=== PATIENT | female | born 1970 | race Caucasian/White ===

== ENCOUNTER 2017-12-09 02:57 | Emergency (ER) | payer SELFPAY ==
[2017-12-09 02:59] VITALS: BP 182/99; PULSE 101; RESP 16; TEMP 36.8; O2SAT 99; BMI 28.5
[2017-12-09 03:07] VITALS: BP 173/93; PULSE 86; RESP 16; O2SAT 97
--- NOTE | 2017-12-09 03:09 | ED.DCSUM_ITS ---
- ER Visit Summary Date of Service: 12/09/17 Chief Complaint: [] Dental pain History of Present Illness: The patient is a 47 F complaining of dental pain toothache for last 4 days gradual onset continuous right upper with some swelling to the cheek. She is using ibuprofen. She has never had a dental abscess. No dentist. Physical Examination: Vital signs reviewed General: Well-nourished well-developed Head: Normocephalic atraumatic Eyes: Pupils equal round and reactive to light extraocular movements intact ENT: Dental exam shows a mild amount of gum swelling right upper consistent with periapical abscess. Nothing to Jose Alejandro. Mild soft tissue swelling to the right upper cheek. TMs clear no hemotympanum no trauma Neck: Nontender full range of motion Cardiovascular: Regular rate rhythm no murmurs normal S1-S2 Respiratory: No distress clear to auscultation bilaterally chest nontender Abdomen: Soft nontender nondistended normal bowel sounds no masses Back: Nontender no CVA tenderness Extremities: Nontender active range of motion ?4 extremities no trauma Skin: Normal color no trauma Neuro alert oriented cranial nerves II through XII intact normal strength sensation reflexes Test Results: [] Emergency Department Course and Treatment: [] Started on amoxicillin will continue this for the next 10 days for dental infection abscess. Started on Starks and will follow-up with dentistry. Just given Starks here and will use ibuprofen at home. Treatment Plan: [] Disposition: [] Impression: [] Upper periapical abscess This note was generated with Mobile Authentication dictation software. It may contain incorrect words, spelling, and punctuation that were not noted in review of the chart prior to signing ED Disposition - Plan for ED Patient: Chief Complaint: Dental
--- NOTE | 2017-12-09 03:09 | ED.DEP ---
ED Disposition - Plan for ED Patient: Disposition: Home or Assisted Living Chief Complaint: Dental Instructions: Dental Abscess Prescriptions: Amoxicillin 875 mg PO BID #20 tab Referrals: Dentist,Your [STAFF PHYSICIAN] -
[2017-12-09] MEDS: HYDROcodone Bitartrate/Apap 5/325 Tablet PO (03:13)
[2017-12-09] MEDS: AMOXICILLIN 500 MG CAPSULE 1000 MG PO (03:13)
== END 2017-12-09 03:23 | disposition home or self-care (01) ==
LOC: ED 03:22
PROVIDERS: Emergency Provider Emergency Medicine
DX: K04.7 Periapical abscess without sinus (principal); Z72.0 Tobacco use
CPT/HCPCS: 99282

== ENCOUNTER → 2020-12-28 15:59 | Outpatient (CLI) | payer MEDICARE, SELFPAY | PROVIDERS: Visit Provider Family Medicine | DX: Z03.818 Encounter for observation for suspected exposure to other biological agents ruled out (principal) | CPT/HCPCS: 87635; U0002 ==

== ENCOUNTER → 2021-02-16 16:27 | Outpatient (CLI) | payer MEDICARE, SELFPAY | PROVIDERS: PCP Family Medicine; Referring Provider Family Medicine; Visit Provider Family Medicine | DX: Z03.818 Encounter for observation for suspected exposure to other biological agents ruled out (principal) | CPT/HCPCS: 87635; U0005; U0003 ==

== ENCOUNTER 2021-02-21 09:56 | Emergency (ER) | payer SELFPAY ==
[2021-02-21 09:57] VITALS: BP 192/103; PULSE 93; RESP 16; TEMP 36.5; O2SAT 100; BMI 30.2
--- NOTE | 2021-02-21 10:30 | ED.VIS.DENTA ---
HPI History of Present Illness Chief Complaint: Dental Informant: patient Narrative Narrative: Patient is a 50-year-old female who presents to the emergency department for right jaw pain and swelling. She states that this initially started yesterday. She believes she has a dental infection. She has poor dentition with a cracked tooth just overlying that site. She denies any fevers or chills. No issues with swallowing. No sore throat. No chest pain or shortness of breath. She denies this ever happening before. She does feel a pressure in her right ear. No drainage appreciated. No headache. She does not follow regularly with a dentist. [facility] Home Medications penicillin V potassium 500 mg PO 4X/DAY #40 tab 02/21/21 [Rx Last Taken Unknown] Allergy/AdvReac Type Severity Reaction Status Date / Time No Known Allergies Allergy Verified 02/21/21 09:59 Social History Smoking Status: Current every day smoker tobacco type: cigarettes ROS ROS ED Constitutional Constitutional ED: Denies chills or fever(s) Eyes Eyes: Denies change in vision ENT ENT ED: Reports ear pain and other Details: Dental pain ; Denies epistaxis, rhinorrhea or sore throat Cardiovascular Cardiovascular: Denies chest pain or palpitations Respiratory/Chest Respiratory/Chest: Denies cough, dyspnea or dyspnea on exertion Gastrointestinal Gastrointestinal: Denies abdominal pain, diarrhea, nausea or vomiting Musculoskeletal Musculoskeletal: Denies back pain or neck pain Integumentary Denies rash Neurologic Neurologic: Denies dizziness, headache(s) or weakness EXAM Physical Exam Const Vital Signs: 02/21/21 09:57 02/21/21 10:33 02/21/21 10:34 Temperature 97.7 F L Temperature Source Temporal Pulse Rate 93 77 Respiratory Rate 16 18 Blood Pressure 192/103 H 174/84 H 174/84 H Blood Pressure Mean 132 114 Pulse Ox 100 97 Oxygen Delivery Method Room Air Positive well nourished and well developed General Appearance ED: well developed and NAD HEENT Reports normocephalic, head/scalp atraumatic and moist mucous membranes HEENT Narrative: Dental caries throughout. There is a cracked tooth. No obvious fluctuating drainable abscess present. There is swelling over the right mandible. No overlying skin changes. Tympanic membrane is clear bilaterally. Uvula midline. Eyes PERRL and EOMs intact bilaterally Neck no lymphadenopathy and supple General: Negative for tenderness Chest Wall inspection of chest normal Resp normal respiratory effort and clear to auscultation bilaterally Auscultation: Negative for rales, rhonchi or wheezes Cardio regular rate, regular rhythm and no murmurs Back/Spine no CVA tenderness Extremity normal to inspection General Extremety ED: Negative for edema or tenderness General Extremity: Negative for edema Neuro oriented x3, CN's II-XII intact bilaterally and no sensory deficits noted Sensorium / Orientation: alert Motor Exam: strength 5/5 throughout Psych mental status grossly normal Skin no rashes or lesions noted MDM MDM MDM Narrative Medical decision making narrative: Patient presents to the ED for dental pain. She does have swelling of her face on the right side. No evidence of Ijeoma's angina. No drainable abscess appreciated. Will treat with penicillin. She is given a dental clinic referral list and needs to follow-up this coming week. She can continue to take ibuprofen and Tylenol for her symptoms. She understands and is agreeable with plan. Discharged home in stable condition. Impression: #1. dental abscess Discharge Plan Triage Chief Complaint: Dental Other Complaint: Edema ED Provider: Juan Diego Salazar Dx/Rx/DC Orders Instructions: ED Dental Abscess Prescriptions: New penicillin V potassium 500 mg tablet 500 mg PO 4X/DAY Qty: 40 RF: 0 Primary Care Provider: Care Physician,No Primary Referrals: Heath Agarwal MD [[facility]] - Disposition Disposition: Home, Self Care Discharge Date/Time: 02/21/21 10:44
[2021-02-21] MEDS: Penicillin Vk 250 MG Tablet 500 MG PO (10:32)
[2021-02-21 10:33] VITALS: BP 174/84; PULSE 77; RESP 18; O2SAT 97
[2021-02-21 10:34] VITALS: BP 174/84
== END 2021-02-21 10:44 | disposition home or self-care (01) ==
LOC: ED 10:39
PROVIDERS: Emergency Provider Emergency Medicine
DX: K04.7 Periapical abscess without sinus (principal); F17.210 Nicotine dependence, cigarettes, uncomplicated
CPT/HCPCS: 99283

== ENCOUNTER 2022-03-08 22:30 | Emergency (ER) | payer OTHER, SELFPAY ==
[2022-03-08 22:32] VITALS: BP 192/119; PULSE 105; RESP 18; TEMP 36.8; O2SAT 100; BMI 29.4
[2022-03-08 22:34] VITALS: BP 192/119; PULSE 105; RESP 18; TEMP 36.8; O2SAT 100
--- NOTE | 2022-03-08 22:55 | EX.ED.DYSGE1 ---
HPI History of Present Illness Chief Complaint: Lower Extremity Injury Informant: patient Narrative Narrative: About 45 minutes ago patient noticed an itching and burning sensation on her medial distal left thigh. She pulled up her pants and noticed an erythematous area with a central redness and warmth. It looks like something bit her. With a central redness and warmth. It looks like something bit her. She has no systemic symptoms. She has no shortness of breath. No other areas of redness. PFSH PFSH Medical History Smoker Allergy/AdvReac Type Severity Reaction Status Date / Time No Known Allergies Allergy Verified 02/21/21 09:59 Surgical History (Updated 03/08/22 @ 23:27 by Cceilia Marin) History of Social History Smoking Status: Current every day smoker tobacco type: cigarettes ROS ROS ED Constitutional Constitutional ED: Denies chills, fever(s) or sweats ENT ENT ED: Denies rhinorrhea or sore throat Cardiovascular Cardiovascular: Denies chest pain Respiratory/Chest Respiratory/Chest: Denies cough or dyspnea Gastrointestinal Gastrointestinal: Denies nausea or vomiting Musculoskeletal Musculoskeletal: Denies arthralgias Integumentary Reports rash; Denies abscess or Abrasions Neurologic Neurologic: Denies paresthesias Allergic/Immunologic Allergic/Immunologic ED: Denies urticaria EXAM Physical Exam Const Vital Signs: 03/08/22 22:32 03/08/22 22:34 03/08/22 23:29 Temperature 98.3 F 98.3 F Temperature Source Temporal Temporal Pulse Rate 105 H 105 H Respiratory Rate 18 18 Blood Pressure 192/119 H 192/119 H 180/85 H Blood Pressure Mean 143 143 116 Pulse Ox 100 100 Oxygen Delivery Method Room Air Room Air 03/08/22 23:34 Temperature Temperature Source Pulse Rate 89 Respiratory Rate 16 Blood Pressure 180/85 H Blood Pressure Mean Pulse Ox 96 Oxygen Delivery Method Positive well nourished and well developed General Appearance ED: well developed and NAD HEENT Reports moist mucous membranes HEENT Narrative: No change in voice speech or handling of secretions. Eyes EOMs intact bilaterally Neck Neck Narrative: No stridor. Resp normal respiratory effort and clear to auscultation bilaterally Extremity Extremity Narrative: Patient has an erythematous area on her left medial distal thigh. Total circumference is approximately 8 cm. In the center of this area is about 1-1/2 to 2 cm round area of denser erythema. It almost looks like there may be a bite ronaldo in the center. However, even under magnification I cannot see a stinger or anything in this. It is indurated but not abscessed. She states this just started over the last 45 minutes or so. There is no pain with motion of the knee. This is clearly a skin lesion and not involving the joint. Neuro Sensorium / Orientation: alert Psych mental status grossly normal Skin Skin Narrative: See above. MDM MDM MDM Narrative Medical decision making narrative: This appears to be most likely a bite or sting ronaldo. It has a central area that slightly white surrounded by dense or erythema surrounded by less erythema. No known tick exposures. No systemic symptoms. I do not think this requires antibiotics. There is no indication of actual joint involvement. We will treat this as an allergic response. She would like to go back to work. I explained that this will not immediately resolve. If she develops fevers or other issue she should return. Discharge Plan Triage Chief Complaint: Lower Extremity Injury ED Provider: Lion Wilkinson Dx/Rx/DC Orders Clinical Impression: Insect bite of left thigh with local reaction Instructions: ED Insect Sting, Local Reaction Primary Care Provider: Care Physician,No Primary Referrals: Chiqui Christian MD [STAFF PHYSICIAN] - 3-5 Days Care Physician,No Primary [Primary Care Provider] - Activity Restrictions/Additional Instructions: You should check your blood pressure twice a day over the next week. May need follow-up for treatment. Take Claritin and Pepcid [id number] daily for the next 3-5 days. Disposition Disposition: Home, Self Care Discharge Date/Time: 03/08/22 23:35
[2022-03-08] MEDS: dexAMETHasone 4 MG Tablet 10 MG PO (23:21)
[2022-03-08] MEDS: Famotidine 20 MG Tablet 40 MG PO (23:21)
[2022-03-08] MEDS: Loratadine 10 MG Tablet PO (23:21)
[2022-03-08 23:29] VITALS: BP 180/85
[2022-03-08 23:34] VITALS: BP 180/85; PULSE 89; RESP 16; O2SAT 96
== END 2022-03-08 23:35 | disposition home or self-care (01) ==
LOC: ED 23:22
PROVIDERS: Emergency Provider Emergency Medicine; Visit Provider Emergency Medicine
DX: T63.481A Toxic effect of venom of other arthropod, accidental (unintentional), initial encounter (principal); F17.210 Nicotine dependence, cigarettes, uncomplicated
CPT/HCPCS: 99283

== ENCOUNTER 2022-09-01 16:26 | Emergency (ER) | payer OTHER, SELFPAY ==
[2022-09-01 16:27] VITALS: BP 195/90; PULSE 106; RESP 14; TEMP 35.7; O2SAT 98; BMI 29.7
[2022-09-01 16:34] VITALS: BP 190/98; PULSE 107
--- NOTE | 2022-09-01 16:38 | ED.VIS.DENTA ---
HPI History of Present Illness Chief Complaint: Dental Informant: patient Onset/Context/Timing Onset: Today Context: - (awoke w/ pain/swelling) Timing: Continuous Quality: sore/aching Location: right upper dentition/facce Current Severity: Moderate Maximum Severity: Moderate Worsened by: eating Relieved by: - (nothing but hasn't taken anything) Associated Symptoms Assocated Symptom - Dental: face swelling; Negative for fever Narrative Narrative: Patient states she has a history of poor dentition, she woke up with pain and swelling in her right face and dentition this morning. No fevers or chills. No bleeding or foul taste/discharge in her mouth. PFSH PFSH Medical History Smoker Home Medications amoxicillin 500 mg tablet 500 mg PO TID #30 tabs 09/01/22 [Rx Last Taken Unknown] ibuprofen 600 mg tablet 600 mg PO Q8H PRN PRN pain #20 TABLETS 09/01/22 [Rx Last Taken Unknown] Allergy/AdvReac Type Severity Reaction Status Date / Time No Known Allergies Allergy Verified 09/01/22 16:33 Surgical History History of Social History Smoking Status: Current every day smoker tobacco type: cigarettes ROS ROS ED Constitutional Constitutional ED: Denies chills or fever(s) Eyes Eyes: Denies change in vision or double vision ENT ENT ED: Reports dental pain; Denies sinus pain or throat swelling Cardiovascular Cardiovascular: Denies chest pain or palpitations Respiratory/Chest Respiratory/Chest: Denies cough or dyspnea Integumentary Denies abscess or rash Neurologic Neurologic: Denies headache(s), paresthesias or weakness EXAM Physical Exam Const Vital Signs: 09/01/22 16:27 09/01/22 16:34 Temperature 96.3 F L Temperature Source Temporal Pulse Rate 106 H 107 H Respiratory Rate 14 Blood Pressure 195/90 H 190/98 H Blood Pressure Mean 125 128 Pulse Ox 98 Oxygen Delivery Method Room Air Positive well nourished and well developed General Appearance ED: well developed and NAD HEENT HEENT Narrative: Extremely poor dentition. The teeth that are left in the right maxillary row are extremely decayed. The canine and bicuspid are tender, they are not loosened, there is no discharge, there is no palpable abscess, there is no bleeding or gingival abnormality. The right maxilla face is swollen and tender especially near the nose but there is no fluctuance or erythema. The lower eyelid is a little involved but nontender. No trismus. No sublingual edema. No tongue elevation. No stridor. Normal voice. Face and Sinus: sinuses nontender Throat: posterior oropharynx normal Eyes PERRL and EOMs intact bilaterally Neck no lymphadenopathy and supple Resp normal respiratory effort Neuro oriented x3 and CN's II-XII intact bilaterally Sensorium / Orientation: alert Gait (Neuro): normal gait Psych mental status grossly normal and thought process normal Skin no rashes or lesions noted and no wounds MDM MDM MDM Narrative Medical decision making narrative: Early involvement of dental abscess without any fluctuance to suggest that needle aspiration would be fruitful. There is no fullness inside the mouth where she is tender to suggest a pointing abscess. Her blood pressure is elevated, that will need to be rechecked when she is not in so much pain, she is in agreement, she is not on any blood pressure medication. She wants to work tonight, so she is comfortable with using ibuprofen and no narcotics, will start her on amoxicillin now. Dental follow-up advised. Discharge Plan Triage Chief Complaint: Dental ED Provider: Yo Bruce Dx/Rx/DC Orders Clinical Impression: Infected dental caries, Episode of hypertension Instructions: ED Dental Abscess Prescriptions: New amoxicillin 500 mg tablet 500 mg PO TID Qty: 30 0RF ibuprofen 600 mg tablet 600 mg PO Q8H PRN PRN (Reason: pain) Qty: 20 0RF Primary Care Provider: Care Physician,No Primary Referrals: Dentist,Your [STAFF PHYSICIAN] - As soon as possible Doctor,Your [Non-Staff] - 3-5 Days (for blood pressure recheck) Disposition Disposition: Home, Self Care
[2022-09-01] MEDS: Ibuprofen 600 MG Tablet PO (16:51)
[2022-09-01] MEDS: AMOXICILLIN 500 MG CAPSULE PO (16:51)
== END 2022-09-01 16:53 | disposition home or self-care (01) ==
PROVIDERS: Emergency Provider Emergency Medicine; Visit Provider Emergency Medicine
DX: K02.9 Dental caries, unspecified (principal); I10 Essential (primary) hypertension; F17.210 Nicotine dependence, cigarettes, uncomplicated
CPT/HCPCS: 99283

== ENCOUNTER 2024-04-22 23:09 | Emergency (ER) | payer OTHER, SELFPAY ==
[2024-04-22 23:09] VITALS: BP 187/97; PULSE 90; RESP 16; TEMP 36.6; O2SAT 99; BMI 33.3
--- NOTE | 2024-04-23 00:09 | RAD_ITS ---
EXAM: XR LUMBOSACRAL SPINE, 4 OR 5 VIEWS CLINICAL INDICATION: pain TECHNIQUE: Frontal, lateral and bilateral oblique views of the lumbar spine. COMPARISON: No relevant prior studies available. FINDINGS: VERTEBRAE: Facet joint hypertrophy. Preserved vertebral body height. No fracture. No spondylolisthesis. Preservation of the normal lumbar lordosis. DISC SPACES: Degenerative changes of the intervertebral discs. VASCULATURE: Atherosclerotic calcifications of the abdominal aorta. GASTROINTESTINAL TRACT: Unremarkable as visualized. Included bowel gas pattern is non-obstructive. RAD/L/S Spine Min 4 Views IMPRESSION: 1. No acute injuries identified involving the lumbar spine. 2. Degenerative changes. Electronically Signed: Modesto Sommer MD at 0:44 EDT ,
[2024-04-23] MEDS: Orphenadrine 60 MG/2 ML Ampul IM (00:16)
[2024-04-23] MEDS: Ketorolac 30 MG/ML Syringe IM (00:16)
--- NOTE | 2024-04-23 00:45 | EDS_ITS ---
HPI History of Present Illness Chief Complaint: Back Informant: patient Narrative Narrative: Patient is a 54-year-old female with no significant past medical history. 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 She states that after doing so she developed pain in her bilateral low back that was worse with motion. She states that she took it easy for the next few days and took Tylenol and Motrin which seemed to help. However when she came back to work and began moving and lifting the pain returned and this concerned her so therefore she presents for evaluation. She denies any loss of bowel or bladder control or IV drug use. PFSH PFSH Medical History Smoker Home Medications ?Medication ?Instructions ?Recorded ?Last Taken ?Type amoxicillin 500 mg tablet 500 mg PO TID #30 tabs 09/01/22 Unknown Rx ibuprofen 600 mg tablet 600 mg PO Q8H PRN PRN pain #20 09/01/22 Unknown Rx TABLETS methocarbamol 500 mg tablet 1,000 mg (2 x 500 mg) PO 4X/DAY 04/23/24 Unknown Rx PRN Muscle pain/spasm 7 days #56 tabs Allergy/AdvReac Type Severity Reaction Status Date / Time No Known Allergies Allergy Verified 04/22/24 23:11 Surgical History History of Social History Smoking Status: Current every day smoker tobacco type: cigarettes ROS ROS ED Constitutional Constitutional ED: Denies chills or fever(s) ENT ENT ED: Denies sore throat Cardiovascular Cardiovascular: Denies chest pain Respiratory/Chest Respiratory/Chest: Denies cough or dyspnea Gastrointestinal Gastrointestinal: Denies abdominal pain, diarrhea, nausea or vomiting Genitourinary Genitourinary ED: Denies dysuria or hematuria Musculoskeletal Musculoskeletal: Reports back pain Integumentary Denies rash Neurologic Neurologic: Denies headache(s), paresthesias or weakness Hematologic/Lymphatic Hematologic/Lymphatic: Denies easy bleeding or easy bruising EXAM Physical Exam Const Vital Signs: 04/22/24 23:09 Temperature 98 F Temperature Source Temporal Pulse Rate 90 Respiratory Rate 16 Blood Pressure 187/97 H Blood Pressure Mean 127 Pulse Ox 99 Oxygen Delivery Method Room Air Positive well nourished and well developed General Appearance ED: well developed; Negative for pallor HEENT HEENT Narrative: Normocephalic atraumatic Eyes PERRL and EOMs intact bilaterally General Eye ED: Negative for scleral icterus Neck supple Resp normal respiratory effort and clear to auscultation bilaterally Cardio regular rate and regular rhythm Back/Spine no CVA tenderness Back/Spine Narrative: No bony deformity or step-off of the thoracic or lumbar spine but there is midline lower lumbar pain with palpation. No pain with palpation over top the sacroiliac joint Negative Tamiko sign No saddle anesthesia. Negative straight leg raise. No clonus or Babinski. Patellar reflexes are plus 2 out of 4 bilaterally Pain does worsen in the low back with extension and rotation Extremity normal to inspection Neuro oriented x3, CN's II-XII intact bilaterally and no sensory deficits noted Sensorium / Orientation: alert Motor Exam: strength 5/5 throughout Psych mental status grossly normal Skin no rashes or lesions noted and no wounds Skin Narrative: No overlying soft tissue changes to suggest trauma or infection General Skin Exam: Negative for jaundice or pallor MDM MDM MDM Narrative Medical decision making narrative: Patient arrived to the ER hypertensive but otherwise with stable vitals. Patient reported pain in the low back after lifting. There is no report of loss of bowel or bladder control or IV drug use and there for my concern for cauda equina or epidural abscess is low. Without hematuria or flank pain I also have low concern for kidney stone and without dysuria I have low concern for UTI or pyelonephritis. With midline discomfort and lifting there is concern for compression fracture or spondylolisthesis so an x-ray was obtained. This revealed no acute compression or signs of injury. After receiving Toradol and Norflex patient did have improvement of symptoms. Therefore this time his history and exam indicate this is lumbosacral strain and not a neurologic impingement or bony fracture or infectious process there is no need for further workup and she is otherwise safe for discharge History & Record Review Discussion w/independent historian: Patient Radiography Diagnostic Testing: Clinical Impression(s) from Imaging Studies Lumbar Spine X-Ray 04/23/24 00:09 IMPRESSION: 1. No acute injuries identified involving the lumbar spine. 2. Degenerative changes. Electronically Signed: Modesto Sommer MD at 0:44 EDT , X-ray of the lumbosacral spine as interpreted by the emergency medicine physician reveals degenerative changes without acute compression fracture or spondylolisthesis Discharge Plan Triage Chief Complaint: Back ED Provider: Van Benoit Dx/Rx/DC Orders Clinical Impression: Acute myofascial strain of lumbosacral region, Hypertension Instructions: Understanding Lumbosacral Strain Prescriptions: New methocarbamol 500 mg tablet 1,000 mg PO 4X/DAY PRN (Reason: Muscle pain/spasm) 7 Days Qty: 56 0RF No Action amoxicillin 500 mg tablet 500 mg PO TID Qty: 30 0RF ibuprofen 600 mg tablet 600 mg PO Q8H PRN PRN (Reason: pain) Qty: 20 0RF Primary Care Provider: Care Physician,No Primary Referrals: Corporate,Care [Group of Physicians] - Care Physician,No Primary [Primary Care Provider] - Activity Restrictions/Additional Instructions: Please continue to stretch and heat your low back to reduce pain and speed healing. Continue with Tylenol and/or Motrin for pain control and add the muscle relaxer for improved treatment. Return to the ER should you have any further concerns. Print Language: Israeli Disposition Disposition: Home, Self Care Discharge Date/Time: 04/23/24 00:58
== END 2024-04-23 00:58 | disposition home or self-care (01) ==
PROVIDERS: Emergency Provider Emergency Medicine; Visit Provider Emergency Medicine
DX: S39.012A Strain of muscle, fascia and tendon of lower back, initial encounter (principal); I10 Essential (primary) hypertension; F17.210 Nicotine dependence, cigarettes, uncomplicated; X58.XXXA Exposure to other specified factors, initial encounter
CPT/HCPCS: 72110; 96372; 99282

== ENCOUNTER 2024-11-22 10:36 | Emergency (ER) | payer SELFPAY ==
[2024-11-22 10:36] VITALS: BP 180/94; PULSE 101; RESP 20; TEMP 37.2; O2SAT 99; BMI 32.4
--- NOTE | 2024-11-22 11:14 | EDS_ITS ---
HPI History of Present Illness Chief Complaint: Dental Informant: patient Narrative Narrative: Increasing left-sided facial swelling for the past day. History dental caries. On cold sensitivity to the tooth last month. Yesterday noticed swelling improved after she brushed her teeth however this morning increased again. Does have a dentist. No fevers. No trouble swallowing. No antibiotic allergies. Prior similar symptoms: Yes PFSH PFSH Medical History Smoker Home Medications ?Medication ?Instructions ?Recorded ?Last Taken ?Type ibuprofen 600 mg tablet 600 mg PO Q8H PRN PRN pain # 20 09/01/22 Unknown Rx TABLETS methocarbamol 500 mg tablet 1,000 mg (2 x 500 mg) PO 4 X/DAY 04/23/24 Unknown Rx PRN Muscle pain/spasm 7 days #56 tabs amoxicillin 875 mg-potassium 875 mg PO Q12H #20 TABLET S 11/22/24 Unknown Rx clavulanate 125 mg tablet Allergy/AdvReac Type Severity Reaction Status Date / Time No Known Allergies Allergy Verified 11/22/24 10:37 Surgical History History of Social History Smoking Status: Current every day smoker tobacco type: cigarettes ROS ROS ED Constitutional Constitutional ED: Denies chills, fever(s) or sweats ENT ENT ED: Reports other Details: Facial swelling dental caries ; Denies sore throat Cardiovascular Cardiovascular: Denies chest pain, leg edema, palpitations or racing heartbeat Respiratory/Chest Respiratory/Chest: Denies cough, dyspnea or dyspnea on exertion Gastrointestinal Gastrointestinal: Denies abdominal pain, diarrhea, nausea or vomiting Genitourinary Genitourinary ED: Denies dysuria, hematuria or urinary frequency Musculoskeletal Musculoskeletal: Denies back pain, extremity pain or neck pain Integumentary Denies rash or wounds Neurologic Neurologic: Denies headache(s), paresthesias or weakness EXAM Physical Exam Const Vital Signs: 11/22/24 10:36 Temperature 99 F Temperature Source Temporal Pulse Rate 101 H Respiratory Rate 20 H Blood Pressure 180/94 H Blood Pressure Mean 122 Pulse Ox 99 Oxygen Delivery Method Room Air Positive well nourished and well developed General Appearance ED: well developed and NAD HEENT Reports moist mucous membranes HEENT Narrative: Swelling left maxillary. Dentition, dental decay of tooth 2, #3 decayed down to the root, #7 decay at the base. There is no fluctuance of the gumline. Airway patent. No sublingual edema. normocephalic and atraumatic Eyes General Eye ED: Yes normal appearance of both eyes Neck full ROM Chest Wall Chest: Negative for tenderness Resp normal respiratory effort and normal air movement Effort and Inspection: symmetric chest movement; Negative for respiratory distress Cardio regular rate, regular rhythm and no murmurs Peripheral Pulses: pulses 2+ throughout GI normal to inspection, nondistended, normoactive bowel sounds and non-tender Palpation: Negative for guarding or rebound tenderness present Extremity normal to inspection General Extremety ED: Negative for edema or tenderness General Extremity: Negative for edema Neuro oriented x3 and no sensory deficits noted Sensorium / Orientation: awake and alert Skin no rashes or lesions noted and no wounds MDM MDM MDM Narrative Medical decision making narrative: Interventions / MDM: Differential diagnosis: Dental caries, dental abscess Diagnosis considered but do not suspect: No clinical Glen angina My EKG interpretation: N/A Imaging independently reviewed and interpreted by myself: N/A External documents reviewed: N/A Test considered but not ordered:N/A ED course: Nontoxic dental decay left upper teeth as noted. Concerns for culprit tooth will be #3 decay down the root there is no fluctuance amenable for incision and drainage. She is covered with Augmentin. She will use Tylenol or Motrin as needed. She does have a dentist in addition was given dental list for follow-up for definitive care. Discussed hydroperoxide mixture rinse and brushing to help with dentition. All questions were answered. Re-evaluation: stable Disposition discussed with patient/family/significant other: Patient Case discussed with consulting clinician: N/A This note was generated with [employer] dictation software. It may contain incorrect words, spelling, and punctuation that were not noted in checking the note before signing. Discharge Plan Triage Chief Complaint: Dental ED Provider: Donta Grijalva Dx/Rx/DC Orders Clinical Impression: Dental caries, Abscess, dental Instructions: ED Dental Cavity, ED Dental Abscess Prescriptions: New amoxicillin-pot clavulanate 875-125 mg tablet 875 mg PO Q12H Qty: 20 0RF No Action ibuprofen 600 mg tablet 600 mg PO Q8H PRN PRN (Reason: pain) Qty: 20 0RF methocarbamol 500 mg tablet 1,000 mg PO 4X/DAY PRN (Reason: Muscle pain/spasm) 7 Days Qty: 56 0RF Stand Alone Forms: ED Work / School Excuse Primary Care Provider: Care Physician,No Primary Referrals: Care Physician,No Primary [Primary Care Provider] - Activity Restrictions/Additional Instructions: Take antibiotic as prescribed. No area limited to drainage in the ED. Tylenol Motrin as needed. Use hydrogen peroxide mix 1 part peroxide to 2 parts water mouth rinse and brushing 1-2 times a day. Follow-up with your dentist or call and use dental list for outpatient evaluation definitive treatment plans. Print Language: Portuguese Disposition Disposition: Home, Self Care
[2024-11-22] MEDS: Amox/Clavulanate 875 MG Tablet PO (11:19)
== END 2024-11-22 11:22 | disposition home or self-care (01) ==
PROVIDERS: Emergency Provider Emergency Medicine; Visit Provider Emergency Medicine
DX: K02.9 Dental caries, unspecified (principal); K04.7 Periapical abscess without sinus; F17.210 Nicotine dependence, cigarettes, uncomplicated
CPT/HCPCS: 99282

== ENCOUNTER → 2024-12-18 | Outpatient (CLI) | payer SELFPAY ==
[2024-12-18 13:02] LABS: Absolute Lymphocyte Count 1.89 X10^3/uL (0.83-4.51); Absolute Neutrophil Count 9.5 X10^3/uL (2.0-7.7); Basophil# 0.07 X10^3/uL; Basophil% 0.5 % (0-1); Eosinophil# 0.32 X10^3/uL; Eosinophils% 2.5 % (0-5); Hematocrit 37.1 % (37-47); Hemoglobin 11.8 g/dL (12.0-15.0); Lymphocyte # 1.89 X10^3/ul (0.83-4.51); Lymphocyte % 14.8 % (19-41); Mean Corp Hgb Conc 31.8 g/dL (32-36); Mean Corpuscular Hgb 27.9 pg (27.0-32.0); Mean Corpuscular Volume 87.7 fL (81-99); Monocyte# 0.89 X10^3/uL; NRBC Flagged by Analyzer 0 % (0-5); Neutrophil # 9.53 X10^3/uL (2.7-7.7); Neutrophil % 74.7 % (47-70); Platelet Count 327 K/mm3 (150-450); RBC Distribution Width SD 45.2 fl (35.1-43.9); Red Blood Count 4.23 M/mm3 (4.2-5.4); White Blood Count 12.8 K/mm3 (4.4-11.0)
[2024-12-18 13:20] LABS: Hemoglobin A1c 5.6 % (<=5.6)
[2024-12-18 13:21] LABS: Microalbumin,Random Urine 74.7 mg/L (NO RANGE EST.)
[2024-12-18 13:36] LABS: Cholesterol 250 mg/dL (<=200); High Density Lipoprotein 44 mg/dL; Low Density Lipoprotein Calc. 187 mg/dL; Triglycerides 98 mg/dL; Very Low Density Lipoprotein 20 mg/dL (5-40); cholesterol:hdl ratio screen 5.72
[2024-12-18 13:41] LABS: ALB/GLOB Ratio 1.2 RATIO (0.9-2.4); AST(SGOT) 22 U/L (<=31); Alanine Aminotransfer ALT/SGPT 19 U/L (<=34); Albumin, Serum 4.3 g/dL (3.5-5.0); Alkaline Phosphatase 103 U/L (35-104); Anion Gap 14 (5-15); BUN 23 mg/dL (4-19); BUN/Creat Ratio 28.1 RATIO (10-20); Calcium,Total 9.6 mg/dL (7.6-11.0); Carbon Dioxide 20.5 mmol/L (21.0-32.0); Chloride 106 mmol/L (98-108); Creatinine, Serum 0.83 mg/dL (0.70-1.20); EST Glomerular Filtration Rate 84 (>60); Globulin 3.6 g/dL (2.2-4.2); Glucose 122 mg/dL (70-99); Potassium 3.5 mmol/L (3.3-5.1); Protein, Total 7.9 g/dL (5.9-8.4); Sodium Level 140 mmol/L (133-145); Total Bilirubin < 0.15 mg/dL (0.00-1.30)
== END | disposition home or self-care (01) ==
LOC: VSLAB 11:13
PROVIDERS: PCP Family Medicine; Visit Provider Family Medicine
DX: I10 Essential (primary) hypertension (principal)
CPT/HCPCS: 36415; 80053; 80061; 82043; 83036; 85025

== ENCOUNTER → 2025-01-16 | Outpatient (CLI) | payer SELFPAY ==
[2025-01-16 12:29] LABS: Absolute Lymphocyte Count 2.47 X10^3/uL (0.83-4.51); Absolute Neutrophil Count 8.3 X10^3/uL (2.0-7.7); Basophil# 0.07 X10^3/uL; Basophil% 0.6 % (0-1); Eosinophil# 0.27 X10^3/uL; Eosinophils% 2.2 % (0-5); Hematocrit 38.9 % (37-47); Hemoglobin 12.5 g/dL (12.0-15.0); Lymphocyte # 2.47 X10^3/ul (0.83-4.51); Lymphocyte % 19.8 % (19-41); Mean Corp Hgb Conc 32.1 g/dL (32-36); Mean Corpuscular Hgb 27.8 pg (27.0-32.0); Mean Corpuscular Volume 86.6 fL (81-99); Mean Platelet Vol. 9.8 fl (6.2-12.0); Monocyte% 10.4 % (0-10); NRBC Flagged by Analyzer 0 % (0-5); Neutrophil # 8.31 X10^3/uL (2.7-7.7); Neutrophil % 66.8 % (47-70); Platelet Count 346 K/mm3 (150-450); RBC Distribution Width CV 13.4 % (11.6-14.6); RBC Distribution Width SD 41.7 fl (35.1-43.9); Red Blood Count 4.49 M/mm3 (4.2-5.4); White Blood Count 12.5 K/mm3 (4.4-11.0)
[2025-01-16 13:13] LABS: ALB/GLOB Ratio 1.2 RATIO (0.9-2.4); AST(SGOT) 18 U/L (<=31); Alanine Aminotransfer ALT/SGPT 15 U/L (<=34); Albumin, Serum 4.2 g/dL (3.5-5.0); Alkaline Phosphatase 93 U/L (35-104); Anion Gap 13 (5-15); BUN 27 mg/dL (4-19); BUN/Creat Ratio 22.8 RATIO (10-20); Calcium,Total 9.3 mg/dL (7.6-11.0); Carbon Dioxide 23.7 mmol/L (21.0-32.0); Chloride 101 mmol/L (98-108); Creatinine, Serum 1.18 mg/dL (0.70-1.20); EST Glomerular Filtration Rate 55 (>60); Globulin 3.6 g/dL (2.2-4.2); Glucose 96 mg/dL (70-99); Magnesium 2.3 mg/dL (1.5-2.2); Potassium 3.9 mmol/L (3.3-5.1); Protein, Total 7.8 g/dL (5.9-8.4); Sodium Level 138 mmol/L (133-145); Vitamin B12 862 pg/mL (180-914)
== END | disposition home or self-care (01) ==
LOC: VSLAB 08:48
PROVIDERS: PCP Family Medicine; Visit Provider Family Medicine
DX: R25.2 Cramp and spasm (principal)
CPT/HCPCS: 36415; 80053; 82607; 83735; 84443; 85025